=== PATIENT | female | born 1950 | race Caucasian/White ===

== ENCOUNTER → 2018-01-24 | Outpatient (CLI) | payer MEDICARE ==
[~2018-01-24] MED LIST: B Complex #11 EACH PO; BLINK EYE DROPS; CEVIMELINE HCL30 MG; CHOL10002 PO; CLOB.05TO TOP; CONEST.625 VAG; CYAN1000I; CYAN500 PO; Evoxac30 MG PO; Eye Drops15 ML; FLAX SEED OIL1000 MG PO; LIDO5TO TOP; PANT40; Prilosec Otc20 MG PO; Slow Release I160 MG PO; Super B-50 Com1 EACH PO; TACROLIMUS; VITAMIN B12 PO
[2018-01-26 11:58] LABS: HPV Genotype 16 Not Detected (NOTDET); HPV Genotype 18 Not Detected (NOTDET)
[2018-02-01 14:16] LABS: HPV High Risk Other Not Detected (NOTDET)
== END | disposition home or self-care (01) ==
LOC: OLS 14:58
PROVIDERS: Nurse Practitioner Women's Health
DX: Z12.4 Encounter for screening for malignant neoplasm of cervix (principal)
CPT/HCPCS: 87624; G0123